=== PATIENT | female | born 2000 | race Caucasian/White ===

== ENCOUNTER 2022-05-26 18:33 | Emergency (ER) | payer BC, SELFPAY ==
[2022-05-26 18:55] VITALS: BP 151/89; PULSE 83; RESP 20; TEMP 36.8; O2SAT 100
--- NOTE | 2022-05-26 21:23 | ED.NAVMDI ---
HPI - Nausea/Vomiting/Diarrhea General Chief complaint: Nausea/Vomiting/Diarrhea Stated complaint: nausea x 3 weeks Time Seen by Provider: 05/26/22 21:23 Source: patient, RN notes reviewed and old records reviewed Mode of arrival: ambulatory Limitations: no limitations History of Present Illness HPI Narrative: 21 year old female accompanied by significant other with complaints of nausea and vomiting for the past 3 weeks.Patient reports that she had miscarriage about 7 days ago and was approximately 6 weeks . Patient denies any abdominal pain, no fevers, states scant vaginal bleeding present. Patient reports that she is drinking fluids but she has nausea and vomiting when she tries to eat.Patient denies any blood noted in vomiting or any bilious vomit, food contents reported. MD elicited complaint: nausea and vomiting Related Data Home Medications Medication Instructions Recorded Confirmed bupropion HCl 150 mg 24 hr tablet, mg PO 05/26/22 extended release fluoxetine 40 mg capsule mg 05/26/22 levothyroxine 175 mcg tablet mcg 05/26/22 Allergies Allergy/AdvReac Type Severity Reaction Status Date / Time No Known Allergies Allergy Unverified 05/26/22 20:47 Review of Systems Review of Systems: CONSTITUTIONAL: Denies fever, chills, or sweats. EYES: Denies visual changes, redness, or discharge. ENT: Denies rhinorrhea, congestion, sore throat, or otalgia. CARDIOVASCULAR: Denies chest pain, palpitations, or edema. RESPIRATORY: Denies cough or dyspnea. GASTROINTESTINAL: Denies abdominal pain,positive for nausea, vomiting, no diarrhea. GENITOURINARY: Denies dysuria or hematuria. SKIN: Denies rash or itching. MUSCULOSKELETAL: Denies back pain, joint pain, or myalgia. NEUROLOGIC: Denies headache, numbness, or weakness. PSYCHIATRIC: positive for history of anxiety or depression. All systems reviewed & are unremarkable except as noted in HPI and below PMFSH Past Medical History Medical History (Updated 06/02/22 @ 08:41 by Zunilda Carrera NP) Anxiety and depression Hypothyroidism Surgical History Surgical History (Updated 06/02/22 @ 08:42 by Zunilda Carrera NP) History of tonsillectomy and adenoidectomy Social History Social History (Updated 06/02/22 @ 08:42 by Zunilda Carrera NP) Smoking status: Current every day smoker Tobacco type: e-cigarettes/vaping Gender identity (if verbalized by the patient): Female Comments At time of signature, agree with nursing past medical, surgical, social and family history. There is no relevant family history pertinent to the presenting complaint Exam Narrative: GENERAL: Well-appearing, well-nourished, and in no acute distress. HEAD: Normocephalic, atraumatic. EYES: PERRLA and EOMI. ENT: Nares clear, no rhinorrhea or epistaxis. Mucous membranes moist.TM's normal with good light reflex, throat pink with no lesions or redness no welling present. NECK: Supple.no lymphadenopathy CHEST: Clear to auscultation. No respiratory distress. HEART: Regular rate and rhythm. No murmur heard. Normal peripheral pulses. ABDOMEN: Soft, nontender to palpation, nondistended, normal active bowel sounds.No CVA tenderness EXTREMITIES: Normal range of motion. No edema. SKIN: Warm, dry, no rash. NEURO: No focal deficits. Alert and oriented x3. Course Course Emergency Course: Patient is aware of diagnosis, understands and agrees to treatment plan.? Anticipatory guidance given.? Patient agrees to follow-up as directed and is aware of reasons to seek care at the emergency department. Portions of this record may have been created with voice recognition software Level of Care: Express Care Visit Vital Signs Vital signs: Vital Signs Temperature 36.8 C 05/26/22 18:55 Pulse Rate 83 05/26/22 18:55 Respiratory Rate 20 05/26/22 18:55 Blood Pressure 151/89 H 05/26/22 18:55 Pulse Oximetry 100 05/26/22 18:55 Oxygen Delivery Room Air 05/26/22 18:55 Temperature 3
== END 2022-05-26 21:35 | disposition home or self-care (01) ==
PROVIDERS: Emergency Provider Registered Nurse; PCP Nurse Practitioner Family
DX: R11.2 Nausea with vomiting, unspecified (principal); E03.9 Hypothyroidism, unspecified; Z86.16 Personal history of COVID-19
CPT/HCPCS: 99203; G0463